=== PATIENT | male | born 1965 | race Caucasian/White ===

== ENCOUNTER 2025-04-13 18:27 | Emergency (ER) | payer SELFPAY ==
[~2025-04-13] VITALS: Ht 185.4 cm; Wt 113.0 kg
[2025-04-13 18:51] VITALS: O2SAT 98
[2025-04-13] MEDS ORDERED: ACET-2708 MT (20:10)
[2025-04-13] MEDS ORDERED: CLIN-194 MT (20:17)
[2025-04-13 20:20] VITALS: TEMP 36.7; O2SAT 99
[2025-04-13 20:24] VITALS: BP 149/73; PULSE 84; RESP 15
[2025-04-13] MEDS: KETOROLAC 30MG/ML VIAL IM ONE (20:24)
== END 2025-04-13 20:28 | disposition home or self-care (01) ==
LOC: ER 18:27
DX: M25.572 Pain in left ankle and joints of left foot (principal); E11.9 Type 2 diabetes mellitus without complications; I10 Essential (primary) hypertension
CPT/HCPCS: 73600; 96372; 99283; J1885; Z7610